=== PATIENT | female | born 1990 | race Caucasian/White ===

== ENCOUNTER 2019-12-27 15:48 | Observation (INO) | payer BC ==
[2019-12-27 16:39] VITALS: BMI 52.9
[2019-12-27] MEDS ORDERED: NIFEdipine XL 30 MG TAB PO SCH (17:30)
[2019-12-27 17:33] VITALS: BP 151/72
[2019-12-27 17:47] LABS: #Eosinphils 0.1 thou/uL (0.0-0.7); #Lymphocytes 1.1 thou/uL (1.20-3.40); #Monocytes 0.3 thou/uL (0.11-0.59); %Basophils 0.1 % (0.0-1.0); %Eosinophils 0.5 % (0.0-10.0); %Lymphocytes 7.4 % (21.0-51.0); Hemoglobin 12.3 g/dL (12.0-16.0); Mean Corpuscular HGB CONC 33.3 g/dL (32.0-36.0); Mean Corpuscular Hemoglobin 29.3 pg (27.0-31.0); Mean Corpuscular Volume 88.2 fL (78.0-98.0); Mean Platelet Volume 9.4 fL (7.4-10.4); Platelet Count 262 thou/uL (130-400); RBC Distribution Width 13.8 % (11.5-14.5); White Blood Cell (WBC) Count 14.4 thou/uL (4.8-10.8)
[2019-12-27 18:10] LABS: ALT (SGPT) 12 U/L (8-55); AST (SGOT) 12 U/L (5-34)
[2019-12-27] MEDS ORDERED: Ondansetron PF 4 MG/2 ML Vial IVP PRN (18:12)
[2019-12-27] MEDS ORDERED: hydrALAZINE 20 MG/ML VIAL SLOW IVP PRN (18:12)
[2019-12-27] MEDS ORDERED: Acetaminophen 500 MG TAB PO PRN (18:12)
[2019-12-27] MEDS ORDERED: Promethazine HCl 25 MG/ML VIAL IM PRN (18:12)
[2019-12-27 18:13] LABS: ALT (SGPT) 13 U/L (8-55); AST (SGOT) 12 U/L (5-34); Albumin 3.4 g/dL (3.5-5.0); Alkaline Phosphatase 132 U/L (40-110); Anion Gap 15 mmol/L (10-20); BUN (Urea Nitrogen) 9 mg/dL (7.0-18.7); Bilirubin, Total 0.2 mg/dL (0.2-1.2); Calc. Creatinine Clearance 328 mL/min (70-130); Calcium 9.3 mg/dL (7.8-10.44); Carbon Dioxide 19 mmol/L (22-29); Chloride 107 mmol/L (98-107); Estimated GFR-MDRD Greater than 90; Globulin 3.5 g/dL (2.4-3.5); Glucose 105 mg/dL (70-105); Potassium 4.2 mmol/L (3.5-5.1); Protein, Total 6.9 g/dL (6.0-8.3); Sodium 137 mmol/L (136-145)
[2019-12-27 18:24] LABS: Creatinine, Urine 91.96 mg/dL (47-110)
[2019-12-28 05:46] LABS: SARS-CoV-2 MS2 Positive; SARS-CoV-2 N Gene Negative; SARS-CoV-2 S Gene Negative; SARS-CoV-2 by NAA Not Detected (NotDetected); SARS-CoV-2 orf1ab Negative
[2019-12-28] MEDS ORDERED: FLU VACC QS2020-21(6MOS UP)/PF 60 MCG/0.5 ML SYRINGE IM ONE (09:00)
[2019-12-28] MEDS ORDERED: NIFEdipine XL 30 MG TAB PO SCH ×2 (09:00→11:00)
[2019-12-28] MEDS ORDERED: Betamet Acet/Betamet Na Ph 30 MG/5 ML VIAL ONE (12:24)
[2019-12-28 12:34] VITALS: TEMP 98.2
[2019-12-28] MEDS ORDERED: Betamet Acet/Betamet Na Ph 30 MG/5 ML VIAL IM SCH (13:15)
[2019-12-29] MEDS ORDERED: NIFEdipine XL 60 MG TAB PO SCH (09:00)
== END 2019-12-28 13:20 | disposition home health service (06) ==
LOC: L&D/OP 15:48 → L&D 20:36
PROVIDERS: ADMIT Obstetrics & Gynecology; ATTEND Obstetrics & Gynecology
DX: O13.3 Gestational [pregnancy-induced] hypertension without significant proteinuria, third trimester (principal); Z3A.36 36 weeks gestation of pregnancy; Z79.82 Long term (current) use of aspirin; Z20.828 Contact with and (suspected) exposure to other viral communicable diseases
CPT/HCPCS: 36415; 80053; 82570; 83615; 84156; 84450; 84460; 84550; 85025; 87635; 99285; G0378; U0003

== ENCOUNTER 2020-01-01 16:21 | Inpatient (IN) | payer BC ==
[~2020-01-01 16:21] MED LIST: Bupivacaine 0.25% HCL 30 ML VIAL ONE; Bupivacaine HCl 0.5%/Epinephrine 1:200,000/PF 30 ml Vial ONE; Lidocaine 2% MPF 10 ML AMP (For Epidural Use) ONE
[2020-01-01] MEDS ORDERED: Misoprostol 200 MCG TAB ONE (18:11)
[2020-01-01] MEDS ORDERED: Ondansetron PF 4 MG/2 ML Vial IVP PRN (18:24)
[2020-01-01] MEDS ORDERED: Butorphanol Tartrate 1 MG/ML VIAL SLOW IVP PRN (18:24)
[2020-01-01] MEDS ORDERED: HYDROcodone/Acetaminophen 5/325 mg Tablet PO PRN (18:24)
[2020-01-01] MEDS ORDERED: NS / Oxytocin 40 units/1000ml 1,000 ML IV PRN (18:24)
[2020-01-01] MEDS ORDERED: Lidocaine 1% (PF) 30 ML VIAL SC PRN (18:24)
[2020-01-01] MEDS ORDERED: Ibuprofen 800 MG TAB PO PRN (18:24)
[2020-01-01 18:47] VITALS: BMI 52.9
[2020-01-01] MEDS: Misoprostol 100 MCG TAB VAG SCH (18:50)
[2020-01-01 19:34] LABS: HBSAg Index 0.15 S/CO (0-0.99); Hep B Surf Ag Non-Reactive S/CO (NonReactive); Syphilis Antibody Nonreactive (Nonreactive); Syphilis Antibody Index 0.05 S/CO (<1.00 Non-Reactive)
[2020-01-01 22:06] LABS: Hemoglobin 12.1 g/dL (12.0-16.0); Mean Corpuscular HGB CONC 31.7 g/dL (32.0-36.0); Mean Corpuscular Hemoglobin 27.9 pg (27.0-31.0); Mean Platelet Volume 9.7 fL (7.4-10.4); Platelet Count 278 thou/uL (130-400); RBC Distribution Width 13.7 % (11.5-14.5); Red Blood Cell (RBC) Count 4.34 mill/uL (4.20-5.40)
[2020-01-02] MEDS: Misoprostol 100 MCG TAB VAG SCH (02:43)
[2020-01-02] MEDS ORDERED: DISCONTINUE ALL PREVIOUS NARCOTICS FS SCH (08:30)
[2020-01-02] MEDS ORDERED: Bupivacaine 0.5% 20 ML, fentaNYL Citrate/PF 400 MCG in Sodium Chloride 0.9% 72 ML EPIDURAL SCH (08:30)
[2020-01-02] MEDS: Lactated Ringer's 1,000 ML IV SCH ×2 (08:30→18:40)
[2020-01-02] MEDS: hydrALAZINE 20 MG/ML VIAL SLOW IVP PRN ×2 (09:47→20:06)
[2020-01-02] MEDS ORDERED: Acetaminophen 325 MG TAB PO PRN ×2 (10:03→23:56)
[2020-01-02] MEDS ORDERED: Lactated Ringer's 500 ML IV PRN (10:03)
[2020-01-02] MEDS ORDERED: ePHEDrine 50 MG/ML VIAL SLOW IVP PRN (10:03)
[2020-01-02] MEDS ORDERED: Promethazine HCl 25 MG/ML VIAL IM PRN ×2 (10:03→23:00)
[2020-01-02] MEDS ORDERED: diphenhydrAMINE 50 MG/ML VIAL IVP PRN ×2 (10:03→23:00)
[2020-01-02] MEDS ORDERED: Ondansetron PF 4 MG/2 ML Vial IVP PRN ×3 (10:03→23:56)
[2020-01-02] MEDS ORDERED: Naloxone HCl 0.4 mg/ml Vial IVP PRN ×4 (10:03→23:00)
[2020-01-02] MEDS ORDERED: Fentanyl 4 mcg/Bupivacaine 0.1% Cassette 100 ML EPIDURAL SCH (10:15)
[2020-01-02] MEDS ORDERED: Communication Order-Pharmacy FS SCH ×2 (10:15→23:00)
[2020-01-02] MEDS ORDERED: hydrALAZINE 20 MG/ML VIAL SLOW IVP SCH (18:00)
[2020-01-02] MEDS ORDERED: Labetalol HCl 100 MG/20 ML VIAL ONE (18:14)
[2020-01-02] MEDS ORDERED: Labetalol HCl 100 MG/20 ML VIAL SLOW IVP SCH (19:00)
[2020-01-02] MEDS ORDERED: Lidocaine 1% (PF) 30 ML VIAL ONE (19:44)
[2020-01-02] MEDS ORDERED: Azithromycin 500 MG VIAL ONE (22:27)
[2020-01-02] MEDS ORDERED: Dexamethasone 4 mg/ml Vial ONE (22:39)
[2020-01-02] MEDS ORDERED: Ketorolac Tromethamine 30 MG/ML VIAL ONE (22:39)
[2020-01-02] MEDS ORDERED: Lidocaine 2% 10 ML INJ ONE (22:39)
[2020-01-02] MEDS ORDERED: Oxytocin 10 UNITS/ML VIAL ONE (22:39)
[2020-01-02] MEDS ORDERED: PHENYLEPHRINE-NS 100 MCG/ML 10 ML SYRINGE ONE (22:39)
[2020-01-02] MEDS ORDERED: Morphine PF 10 MG/10 ML VIAL ONE (22:39)
[2020-01-02] MEDS ORDERED: Ondansetron PF 4 MG/2 ML Vial ONE (22:39)
[2020-01-02] MEDS ORDERED: Promethazine HCl 25 MG/ML VIAL ONE (22:55)
[2020-01-02] MEDS ORDERED: Promethazine HCl 25 MG SUPP PR PRN (23:00)
[2020-01-02] MEDS ORDERED: HYDROmorphone 2 MG/ML VIAL SLOW IVP PRN (23:00)
[2020-01-02] MEDS ORDERED: Meperidine HCl/PF 25 MG/ML VIAL SLOW IVP PRN (23:00)
[2020-01-02] MEDS ORDERED: Naloxone HCl 0.4 mg/ml Vial IV PRN (23:00)
[2020-01-02] MEDS ORDERED: L&D-Morphine 4 MG/ML VIAL SLOW IVP PRN (23:00)
[2020-01-02] MEDS ORDERED: Ondansetron HCl/PF 4 MG/2 ML Vial IVP PRN (23:00)
[2020-01-02] MEDS ORDERED: Bupivacaine/Epinephrine 0.5% 10 ML VIAL ONE ×2 (23:06)
[2020-01-02] MEDS ORDERED: Misoprostol 200 MCG TAB PR PRN (23:56)
[2020-01-02] MEDS ORDERED: HYDROcodone/Acetaminophen 5/325 mg Tablet PO PRN ×2 (23:56)
[2020-01-02] MEDS ORDERED: Bisacodyl 10 MG SUPP PR PRN (23:56)
[2020-01-02] MEDS ORDERED: diphenhydrAMINE 25 MG CAP PO PRN (23:56)
[2020-01-02] MEDS ORDERED: hydrALAZINE 20 MG/ML VIAL SLOW IVP PRN (23:56)
[2020-01-02] MEDS ORDERED: Meperidine HCl/PF 25 MG/ML VIAL IM PRN (23:56)
[2020-01-03] MEDS ORDERED: NS / Oxytocin 40 units/1000ml 1,000 ML IV SCH (00:15)
[2020-01-03] MEDS ORDERED: Labetalol 100 MG TAB PO SCH (00:30)
[2020-01-03] MEDS: Labetalol 100 MG TAB PO SCH ×2 (02:06→17:18)
[2020-01-03] MEDS: Lactated Ringer's 1,000 ML IV SCH ×2 (03:50→04:59)
[2020-01-03] MEDS: Misoprostol 100 MCG TAB VAG SCH ×3 (04:57→04:59)
[2020-01-03] MEDS: Ketorolac Tromethamine 30 MG/ML VIAL IVP SCH ×4 (05:34→22:56)
[2020-01-03 07:03] LABS: Hemoglobin 10.6 g/dL (12.0-16.0); Mean Corpuscular HGB CONC 33.5 g/dL (32.0-36.0); Mean Corpuscular Hemoglobin 29.7 pg (27.0-31.0); Mean Corpuscular Volume 88.7 fL (78.0-98.0); Mean Platelet Volume 9.7 fL (7.4-10.4); Platelet Count 190 thou/uL (130-400); RBC Distribution Width 13.8 % (11.5-14.5); Red Blood Cell (RBC) Count 3.56 mill/uL (4.20-5.40); White Blood Cell (WBC) Count 19.6 thou/uL (4.8-10.8)
[2020-01-03] MEDS: Simethicone Chewable 80 MG TAB PO PRN (08:58)
[2020-01-03] MEDS: Prenatal Vitamin 1 TAB PO SCH (08:58)
[2020-01-03] MEDS: Ferrous Sulfate 325 MG TAB PO SCH ×2 (08:59→17:18)
[2020-01-03] MEDS: Docusate Calcium (SURFAK) 240 MG CAP PO SCH ×2 (08:59→20:12)
[2020-01-03] MEDS ORDERED: Adacel (T-DAP) 0.5 ML SYRINGE IM ONE (09:00)
[2020-01-04] MEDS: Ferrous Sulfate 325 MG TAB PO SCH (07:25)
[2020-01-04] MEDS: Simethicone Chewable 80 MG TAB PO PRN (08:10)
[2020-01-04] MEDS: Docusate Calcium (SURFAK) 240 MG CAP PO SCH (08:10)
[2020-01-04] MEDS: Prenatal Vitamin 1 TAB PO SCH (08:10)
[2020-01-04] MEDS: Labetalol 100 MG TAB PO SCH (08:10)
--- NOTE | 2020-01-04 10:07 | OP ---
DATE OF PROCEDURE: 01/03/2020 RESIDENT SURGEON: Resident surgeon, Dianna Haynes MD PREOPERATIVE DIAGNOSES: 1. Term intrauterine at 37 and 2/7th weeks. 2. Gestational hypertension. 3. Arrest of descent. POSTOPERATIVE DIAGNOSES: 1. Term intrauterine at 37 and 2/7th weeks. 2. Gestational hypertension. 3. Arrest of descent. 4. Cephalopelvic disproportion (CPD). PROCEDURE PERFORMED: Primary low-transverse section. ANESTHESIA: Epidural catheterization. FINDINGS: 1. Gestational hypertension with blood pressures 150s to 160s over 90s. 2. Arrest of descent at 10 cm dilation; pushed x2 hours. 3. Vigorous female infant, 7 pounds 0 ounces. Apgars 7 and 9. 4. Normal uterus, tubes, and ovaries. 5. Cephalopelvic disproportion - prominent sacrum, narrow subpubic arch. COMPLICATIONS: None. SPECIMENS REMOVED: Cord blood. BLOOD LOSS: Approximately 800 mL and then (QBL pending). HISTORY AND INDICATIONS: Mrs. Catia Reyes is a very pleasant lady followed in my clinic for obstetric care. Her antepartum complications included obesity with a BMI greater than 50, which placed her at risk for hypertension. She was placed on a baby aspirin and extra folic acid. Her blood pressure is elevated at 36 weeks and she was admitted to the hospital for preeclampsia workup. Her blood pressure stabilized and the patient was given steroids to enhance lung maturity. She was sent home to bed rest. The patient returned for term induction at 37 weeks on the afternoon of 01/01/2020. She was given Cytotec x3 doses. The patient progressed well to 10 cm, at which time she begin pushing. Her blood pressure did have to be treated throughout the labor course per protocol. The patient pushed for approximately 2 hours and made very little descent. After thorough consent and counseling, decision was made to proceed with primary delivery secondary to arrest of descent and findings consistent with CPD. Surgical disclosures were reviewed and questions were answered. Anesthesia was notified. We proceeded with primary LTCS as outlined. DESCRIPTION OF PROCEDURE: After thorough consent and counseling, Mrs. Catia Reyes was taken to the operating room and adequate level of anesthesia was obtained via existing epidural. The patient was prepped and draped in usual sterile fashion for abdominal surgery. A Arellano was placed in the bladder, which was noted to be draining clear urine. A team time-out was performed per protocol. Attention was then turned to performing a primary low-transverse section. A Pfannenstiel incision was made and carried sharply to the fascia, which was also sharply incised. The midline was identified. The rectus muscles were retracted laterally. The abdominal peritoneal cavity was entered with usual safeguards carried out. A retractor was placed and bladder flap was created on the vesicouterine peritoneum. A bladder blade was then placed. A low-transverse incision was made on the well-developed lower uterine segment. Upon entering the amniotic sac, a copious amount of clear amniotic fluid was noted because the patient had been given amnioinfusion to treat variable deceleration. There was a large amount of clear fluid. The infant was noted to be vertex presentation in the occiput transverse position deep in the pelvis. Head was delivered and baby was bulb suctioned on the abdomen. Nuchal cord x1 was reduced. There was significant caput, molding and bruising of the presenting vertex noted. Head was delivered, and shoulders were then delivered in an atraumatic fashion. Cord was doubly clamped and cut, and the was handed to the pediatric team in attendance for the delivery. The infant was a vigorous viable female weighing 7 pounds 0 ounces with Apgars of 7 and 9 obtained at one and five minutes respectively. Cord blood was obtained. The placenta was manually removed from the uterus. The uterus was exteriorized, and poor tone was initially noted. Vigorous manual massage was performed. Subsequently, we obtained good hemostasis. The low-transverse incision was closed with a running locking ligature of #1 chromic. A 2nd imbricating layer was placed to facilitate strength and hemostasis. The vesicouterine peritoneum was reapproximated to the lower segment with running ligature of 2-0 Monocryl suture. Good tone and hemostasis were then noted. The posterior cul-de-sac gutters were cleared of clot and fluid. The pelvis was carefully inspected secondary to the patient's extended pushing and minimal descent. The patient was noted to have a very prominent sacrum and an android type pelvis. She also was noted to have a deep and narrow subpubic arch. A diagnosis of cephalopelvic disproportion was given. The uterus was returned to the abdomen. Lap, sponge, and needle counts were correct. Peritoneum was closed with a running ligature of 2-0 Vicryl suture. The rectus muscles were reapproximated in the midline with interrupted ligatures of 2-0 Vicryl and #1 chromic suture. The fascia was then closed with two ligatures of 2-0 Vicryl suture, which were tied in the midline. Good fascial integrity was noted. The incision was irrigated with copious amount of warm normal saline. The subcutaneous tissue was closed with interrupted ligatures of 2-0 plain suture in multiple layers. Good hemostasis was once again noted. The skin was closed with subcuticular stitch of 4-0 Monocryl. The incision was then dressed with Dermabond. A pressure dressing and ice packs were subsequently placed. Lap, sponge, and needle counts were correct x3. Estimated blood loss during the surgical procedure was approximately 800 mL. QBL was pending. Team debriefing was performed. The patient was taken to recovery room in good condition. Immediately following surgery, the patient and family were made aware of the surgical procedure and operative findings. We discussed in detail the findings of cephalopelvic disproportion and the implications for future deliveries. Baby was doing well postoperatively and returned to the mother in the recovery room for skin to skin contact and dressing. Questions were answered to the patient and satisfaction. The patient and her were very appreciative of the care rendered here at [facility] early this morning. Job ID: [id number]
[2020-01-04 12:12] VITALS: BP 133/72; TEMP 97.6
[2020-01-04] MEDS ORDERED: Ibuprofen 800 MG TAB PO SCH (14:00)
== END 2020-01-04 15:00 | disposition home or self-care (01) | DRG 788 ==
LOC: L&D 17:23 → 3SW 01-03 03:09 → EDSTATUS 01-22 16:21
PROVIDERS: ADMIT Obstetrics & Gynecology; ATTEND Obstetrics & Gynecology
PROC: 10D00Z1 Extraction of Products of Conception, Low, Open Approach (ICD-10-PCS; principal; 2020-01-03)
PROC: 3E0P7VZ Introduction of Hormone into Female Reproductive, Via Natural or Artificial Opening (ICD-10-PCS; 2020-01-03)
DX: O13.4 Gestational [pregnancy-induced] hypertension without significant proteinuria, complicating childbirth (principal); Z3A.37 37 weeks gestation of pregnancy; Z37.0 Single live birth; Z20.828 Contact with and (suspected) exposure to other viral communicable diseases; O65.8 Obstructed labor due to other maternal pelvic abnormalities; O62.1 Secondary uterine inertia; E66.01 Morbid (severe) obesity due to excess calories; F98.8 Other specified behavioral and emotional disorders with onset usually occurring in childhood and adolescence; O99.214 Obesity complicating childbirth; O99.344 Other mental disorders complicating childbirth; Z79.899 Other long term (current) drug therapy; Z79.82 Long term (current) use of aspirin; O64.0XX0 Obstructed labor due to incomplete rotation of fetal head, not applicable or unspecified
CPT/HCPCS: 36415; 51702; 85027; 86780; 86850; 86900; 86901; 87340; J0360; J0595; J1100; J1885; J2001; J2270; J2405; J2550; J3010; J3490; Q0163; S0020

== ENCOUNTER 2023-03-16 16:20 | Outpatient (CLI) | payer OTHER | END 2023-03-16 16:21 | disposition home or self-care (01) | LOC: SCSRAD 16:20 | PROVIDERS: ATTEND Family Medicine | DX: R05.9 Cough, unspecified (principal) | CPT/HCPCS: 71046 ==